=== PATIENT | male | born 1995 | race Caucasian/White ===

== ENCOUNTER 2022-06-19 09:58 | Emergency (ER) | payer SELFPAY ==
[2022-06-19] MEDS ORDERED: Diphtheria,Pertussis(Acell),Tetanus Vaccine 0.5 ML Syringe IM ONE (11:09)
[2022-06-19] MEDS ORDERED: Lidocaine 1% 10 ML MDV INJECT ONE (11:09)
== END 2022-06-19 11:55 | disposition home or self-care (01) ==
LOC: JD.ED 09:58
DX: S61.512A Laceration without foreign body of left wrist, initial encounter (principal); Z23 Encounter for immunization; W26.0XXA Contact with knife, initial encounter
CPT/HCPCS: 12001; 90471; 90715; 99282; 99282-25